=== PATIENT | male | born 2000 | race African-American/Black ===

== ENCOUNTER 2021-12-19 10:18 | Emergency (ER) | payer BC, SELFPAY ==
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
[2021-12-19 10:28] VITALS: BP 127/81; PULSE 57; RESP 14; TEMP 36.9; O2SAT 100
[2021-12-19] MEDS: AMOXICILLIN/CLAVULANATE K 875-125 MG TAB 1 TABLET PO (11:11)
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
[2021-12-19 13:23] VITALS: BP 131/89; PULSE 66; RESP 16; TEMP 36.9; O2SAT 100
== END 2021-12-19 13:26 | disposition home or self-care (01) ==
PROVIDERS: Emergency Provider Nurse Practitioner Family
DX: S61.252A Open bite of right middle finger without damage to nail, initial encounter (principal); W50.3XXA Accidental bite by another person, initial encounter; Y99.0 Civilian activity done for income or pay
CPT/HCPCS: 73140; 99283; A9270